=== PATIENT | male | born 1980 | race Caucasian/White ===

== ENCOUNTER 2017-11-02 15:39 | Emergency (ER) | payer SELFPAY ==
[~2017-11-02] VITALS: Ht 182.9 cm; Wt 117.9 kg
--- NOTE | 2017-11-03 15:28 | EKG ---
[facility] [address] [place] [id number] Signed Normal sinus rhythm Incomplete right bundle branch block Moderate voltage criteria for LVH, may be normal variant Prolonged QT Abnormal ECG No previous ECGs available Confirmed by MARINA SIBLEY MD ([id number]) on 11/03/2017 3:27:51 PM Electronically Signed By: MARINA SIBLEY MD 11/03/17 1528 PATIENT NAME: ASHTYN HERRON Electrocardiogram DATE OF : 84 PHYSICIAN: MARINA SIBLEY MD REPORT #: [id number] REPORT IS CONFIDENTIAL AND NOT TO BE RELEASED WITHOUT AUTHORIZATION
== END 2017-11-02 22:07 | disposition short-term general hospital (02) ==
LOC: ED 15:39
PROC: 0T9B70Z Drainage of Bladder with Drainage Device, Via Natural or Artificial Opening (ICD-10-PCS; principal; 2017-11-02)
DX: T39.1X2A Poisoning by 4-Aminophenol derivatives, intentional self-harm, initial encounter (principal); F32.9 Major depressive disorder, single episode, unspecified
CPT/HCPCS: 51701; 80053; 80176; 81001; 83605; 83735; 85025; 85610; 93005; 93010; 96365; 96366; 96375; 96376; 99284; G0480; J0132; J2405; J7030; J7060